=== PATIENT | male | born 1995 | race Asian ===

== ENCOUNTER 2025-08-25 17:38 | Emergency (ER) | payer OTHER ==
[~2025-08-25] VITALS: Ht 175.3 cm; Wt 71.0 kg
[2025-08-25 17:49] VITALS: O2SAT 100
[2025-08-25 18:21] LABS: BASOPHILS % 0.8 % (0.0-2.0); EOSINOPHILS % 7.4 % (0.0-5.0); HEMATOCRIT. 37.4 % (42.0-52.0); HEMOGLOBIN. 12.5 g/dL (14.0-18.0); LYMPHOCYTES % 24.9 % (20.0-50.0); MEAN PLATELET VOLUME 7.5 fl (7.4-10.4); MONOCYTES % 9.4 % (2.0-8.0); NEUTROPHILS % 57.5 % (40.0-76.0); PLATELET 266 x1000/uL (130-400); RED BLOOD CELL COUNT 4.34 mill/uL (4.7-6.1); RED CELL DISTRIBUTION WIDTH 13.8 % (11.6-14.6)
[2025-08-25 18:36] LABS: CREATININE 0.9 mg/dL (0.6-1.3); UREA NITROGEN BLOOD 10 mg/dL (9-23)
[2025-08-25 21:35] VITALS: BP 121/50; PULSE 79; RESP 18; TEMP 37.1; O2SAT 99
== END 2025-08-25 21:36 | disposition home or self-care (01) ==
LOC: ER 17:38
DX: M71.22 Synovial cyst of popliteal space [Baker], left knee (principal); D64.9 Anemia, unspecified; I87.1 Compression of vein
CPT/HCPCS: 80048; 85025; 36415; 93971; 99284; A6449